=== PATIENT | female | born 1930 | race Caucasian/White ===

== ENCOUNTER 2018-06-01 16:25 | Emergency (ER) | payer MEDICARE, BC ==
[2018-06-01 20:12] LABS: ABS Basophils 0.1 10^3/ul (0-0.2); ABS Eosinophils 0.1 10^3/ul (0-0.6); ABS Monocytes 0.6 10^3/ul (0-0.8); ABS Neutrophils 4.3 10^3/ul (1.5-7.7); ABS Nucleated RBC 0 10^3/ul; Eosinophil % 1.4 %; Hematocrit 39 % (33-41); Hemoglobin 12.8 g/dL (12.0-16.0); Mean Corpuscular HGB Conc 33 g/dL (31-36); Mean Corpuscular Hemoglobin 30 pg (27-31); Mean Corpuscular Volume 89 fL (80-97); Mean Platelet Volume 7.1 fL (7.4-10.4); Nucleated Red Blood Cells % 0.1; Platelet Count 282 10^3/uL (150-450); Red Blood Count 4.34 10^6 /uL (3.70-4.87); Red Cell Distribution Width 14 % (10.5-15); White Blood Count 6.1 10^3/uL (3.5-10.8)
[2018-06-01 20:31] LABS: Calcium 9.5 mg/dL (8.6-10.3); EGFR Non-African American 72.8 (>60); Potassium 4.1 mmol/L (3.5-5.0)
[2018-06-02] MEDS ORDERED: cloNIDine TAB* 0.1 MG PO ONE (00:25)
[2018-06-02 00:51] LABS: Urine Appearance Clear; Urine Bilirubin Negative (Negative); Urine Blood Negative (Negative); Urine Color Straw; Urine Glucose Negative (Negative); Urine Ketones Negative (Negative); Urine Nitrite Negative (Negative); Urine Protein Negative (Negative); Urine Specific Gravity 1.009 (1.010-1.030); Urine Urobilinogen Negative (Negative)
--- NOTE | 2018-06-02 02:06 | ED ---
Lower Extremity - HPI Summary HPI Summary: Patient complains of bilateral chronic lower extremity swelling with reported increase in pain of left foot starting this morning. Pain originally improved with a change in shoe, and then return. Pain only with weightbearing. No pain at rest or when feet are elevated. Denies trauma, fever, cough, sore throat, CP , SOB, N/V/D, abdominal pain, change in urine, change in BM. Medical history is HTN, A. fib. - History of Current Complaint Chief Complaint: EDGeneral Stated Complaint: RT AND LT LEG SWOLLEN PER SON Time Seen by Provider: 06/01/18 20:45 Hx Obtained From: Patient, Family/Security Dispatcher Mechanism Of Injury: Unknown Severity Currently: None Pain Intensity: 0 Pain Scale Used: 0-10 Numeric Timing: Intermittent Location: Is Discrete @ Character Of Pain: Dull, Aching Associated Signs And Symptoms: Positive: Swelling Aggravating Factor(s): Standing, Weight Bearing Alleviating Factor(s): Rest, Elevation Able to Bear Weight: No - Allergies/Home Medications Allergies/Adverse Reactions: Allergies Allergy/AdvReac Type Severity Reaction Status Date / Time MS Ceftriaxone Allergy Rash Verified 01/16/15 18:48 [From Rocephin] MS Hydrochlorothiazide AdvReac Mild See Comment Verified 01/11/15 14:02 [Hydrochlorothiazide] Home Medications: Home Medications Cholecalciferol (Vitamin D3) [Vitamin D3] 5,000 unit PO DAILY 06/01/18 [History Confirmed 06/01/18] Vitamin B Complex CAP* [B Complex CAP*] 1 cap PO DAILY 06/01/18 [History Confirmed 06/01/18] PMH/Surg Hx/FS Hx/Imm Hx Endocrine/Hematology History: Denies: Hx Diabetes, Hx Thyroid Disease Cardiovascular History: Reports: Hx Hypercholesterolemia, Hx Hypertension Respiratory History: Denies: Hx Asthma, Hx Chronic Obstructive Pulmonary Disease (COPD) GI History: Denies: Hx Ulcer Musculoskeletal History: Reports: Hx Arthritis - POSSIBLE Sensory History: Reports: Hx Cataracts, Hx Contacts or Glasses, Hx Hearing Aid - BILATERAL, Hx Hearing Problem Opthamlomology History: Reports: Hx Cataracts, Hx Contacts or Glasses Neurological History: Denies: Hx Dementia, Hx Developmental Delay, Hx Headaches, Hx Migraine, Hx Nerve Disease, Hx Seizures, Hx Spinal Cord Injury, Hx Transient Ischemic Attacks (TIA), Other Neuro Impairments/Disorders - Cancer History Hx Chemotherapy: No Hx Radiation Therapy: No - Surgical History Surgery Procedure, Year, and Place: Cataract surgery Hx Anesthesia Reactions: No Infectious Disease History: No Infectious Disease History: Reports: Hx Hepatitis - hep A at 8 years Denies: Hx Clostridium Difficile, Hx Human Immunodeficiency Virus (HIV), Hx of Known/Suspected MRSA, Hx Shingles, Hx Tuberculosis, Hx Known/Suspected VRE, Hx Known/Suspected VRSA, History Other Infectious Disease, Traveled Outside the [place] in Last 30 Days - Social History Alcohol Use: None Substance Use Type: Reports: None Smoking Status (MU): Never Smoked Tobacco Review of Systems Constitutional: Negative Eyes: Negative ENT: Negative Cardiovascular: Negative Respiratory: Negative Gastrointestinal: Negative Genitourinary: Negative Musculoskeletal: Negative Skin: Other Neurological: Negative Psychological: Normal All Other Systems Reviewed And Are Negative: Yes Physical Exam - Summary Physical Exam Summary: No evidence of trauma, erythema, ecchymosis, deformity noted to the lateral lower extremities. PMS intact distally in bilateral lower extremities. No increase in swelling of left lower extremity versus right lower extremity. Swelling is nonpitting. Calfs soft nontender bilaterally. Neuro exam normal. No pain with palpation of left foot or with flexion or extension against resistance of left foot or left leg. Patient flexes and extends bilateral feet , ankles, knees, hips without any indication of pain. Abdomen soft nontender. Lung sounds clear to auscultation bilaterally. Triage Information Reviewed: Yes Vital Signs On Initial Exam: Initial Vitals Temp Pulse Resp BP Pulse Ox 98.9 F 83 16 158/87 97 06/01/18 16:47 06/01/18 16:47 06/01/18 16:47 06/01/18 16:47 06/01/18 16:47 Vital Signs Reviewed: Yes Appearance: Positive: Well-Appearing Skin: Positive: Warm Head/Face: Positive: Normal Head/Face Inspection Eyes: Positive: Normal Neck: Positive: Supple Respiratory/Lung Sounds: Positive: Clear to Auscultation Cardiovascular: Positive: Normal Abdomen Description: Positive: Nontender Musculoskeletal: Positive: Normal Neurological: Positive: Normal Psychiatric: Positive: Normal AVPU Assessment: Alert - Raquel Coma Scale Best Eye Response: 4 - Spontaneous Best Motor Response: 6 - Obeys Commands Best Verbal Response: 5 - Oriented Coma Scale Total: 15 Diagnostics - Vital Signs Vital Signs Temp Pulse Resp BP Pulse Ox 06/02/18 01:17 86 151/115 99 06/02/18 01:12 91 97 06/02/18 01:05 167/117 06/02/18 00:22 77 193/108 98 06/02/18 00:17 78 190/100 97 06/02/18 00:00 78 97 06/01/18 23:47 80 199/114 98 06/01/18 23:20 82 196/127 99 06/01/18 23:18 85 197/112 98 06/01/18 23:16 83 203/112 97 06/01/18 18:00 98.8 F 82 16 177/101 97 06/01/18 16:47 98.9 F 83 16 158/87 97 - Laboratory Lab Results: Lab Results 06/01/18 06/01/18 06/01/18 Range/Units 19:57 19:57 19:57 WBC 6.1 (3.5-10.8) 10^3/uL RBC 4.34 (3.70-4.87) 10^6 /uL Hgb 12.8 (12.0-16.0) g/dL Hct 39 (33-41) % MCV 89 (80-97) fL MCH 30 (27-31) pg MCHC 33 (31-36) g/dL RDW 14 (10.5-15) % Plt Count 282 (150-450) 10^3/uL MPV 7.1 L (7.4-10.4) fL Neut % (Auto) 70.6 % Lymph % (Auto) 17.0 % [place] % (Auto) 9.9 % Eos % (Auto) 1.4 % Baso % (Auto) 1.1 % Absolute Neuts (auto) 4.3 (1.5-7.7) 10^3/ul Absolute Lymphs (auto) 1.0 (1.0-4.8) 10^3/ul Absolute Monos (auto) 0.6 (0-0.8) 10^3/ul Absolute Eos (auto) 0.1 (0-0.6) 10^3/ul Absolute Basos (auto) 0.1 (0-0.2) 10^3/ul Absolute Nucleated RBC 0 10^3/ul Nucleated RBC % 0.1 Sodium 139 (135-145) mmol/L Potassium 4.1 (3.5-5.0) mmol/L Chloride 106 (101-111) mmol/L Carbon Dioxide 27 (22-32) mmol/L Anion Gap 6 (2-11) mmol/L BUN 27 H (6-24) mg/dL Creatinine 0.75 (0.51-0.95) mg/dL Est GFR ( Amer) 88.0 (>60) Est GFR (Non-Af Amer) 72.8 (>60) BUN/Creatinine Ratio 36.0 H (8-20) Glucose 136 H (70-100) mg/dL Calcium 9.5 (8.6-10.3) mg/dL B-Natriuretic Peptide 129 H (<=100) pg/mL Urine Color Urine Appearance Urine pH (5-9) Ur Specific [place] (1.010-1.030) Urine Protein (Negative) Urine Ketones (Negative) Urine Blood (Negative) Urine Nitrate (Negative) Urine Bilirubin (Negative) Urine Urobilinogen (Negative) Ur Leukocyte Esterase (Negative) Urine Glucose (Negative) 06/02/18 Range/Units 00:40 WBC (3.5-10.8) 10^3/uL RBC (3.70-4.87) 10^6 /uL Hgb (12.0-16.0) g/dL Hct (33-41) % MCV (80-97) fL MCH (27-31) pg MCHC (31-36) g/dL RDW (10.5-15) % Plt Count (150-450) 10^3/uL MPV (7.4-10.4) fL Neut % (Auto) % Lymph % (Auto) % [place] % (Auto) % Eos % (Auto) % Baso % (Auto) % Absolute Neuts (auto) (1.5-7.7) 10^3/ul Absolute Lymphs (auto) (1.0-4.8) 10^3/ul Absolute Monos (auto) (0-0.8) 10^3/ul Absolute Eos (auto) (0-0.6) 10^3/ul Absolute Basos (auto) (0-0.2) 10^3/ul Absolute Nucleated RBC 10^3/ul Nucleated RBC % Sodium (135-145) mmol/L Potassium (3.5-5.0) mmol/L Chloride (101-111) mmol/L Carbon Dioxide (22-32) mmol/L Anion Gap (2-11) mmol/L BUN (6-24) mg/dL Creatinine (0.51-0.95) mg/dL Est GFR ( Amer) (>60) Est GFR (Non-Af Amer) (>60) BUN/Creatinine Ratio (8-20) Glucose (70-100) mg/dL Calcium (8.6-10.3) mg/dL B-Natriuretic Peptide (<=100) pg/mL Urine Color Straw Urine Appearance Clear Urine pH 7.0 (5-9) Ur Specific [place] 1.009 L (1.010-1.030) Urine Protein Negative (Negative) Urine Ketones Negative (Negative) Urine Blood Negative (Negative) Urine Nitrate Negative (Negative) Urine Bilirubin Negative (Negative) Urine Urobilinogen Negative (Negative) Ur Leukocyte Esterase Negative (Negative) Urine Glucose Negative (Negative) Result Diagrams: 06/01/18 19:57 06/01/18 19:57 Lab Statement: Any lab studies that have been ordered have been reviewed, and results considered in the medical decision making process. Lower Extremity Course/Dx - Course Course Of Treatment: Patient complains of bilateral chronic lower extremity swelling with reported increase in pain of left foot starting this morning. Pain originally improved with a change in shoe, and then return. Pain only with weightbearing. No pain at rest or when feet are elevated. Denies trauma, fever, cough, sore throat, CP, SOB, N/V/D, abdominal pain, change in urine, change in BM. Medical history is HTN, A. fib. Physical exam:No evidence of trauma, erythema, ecchymosis, deformity noted to the lateral lower extremities. PMS intact distally in bilateral lower extremities. No increase in swelling of left lower extremity versus right lower extremity. Swelling is nonpitting. Calfs soft nontender bilaterally. Neuro exam normal. No pain with palpation of left foot or with flexion or extension against resistance of left foot or left leg. Patient flexes and extends bilateral feet, ankles, knees, hips without any indication of pain. Abdomen soft nontender. Lung sounds clear to auscultation bilaterally. Vital signs within normal limits initially. Blood pressure began to elevate. Labs unremarkable. Ultrasound negative for DVT, positive for left lower leg edema. Clonidine 0.1 mg by mouth was given for elevated blood pressure up to 199/114. Blood pressure dropped below 100 SBP, patient was observed and was asymptomatic. Blood pressure return to 98/56. Patient was discharged and advised to follow-up with primary care for further evaluation of incidental finding of Story's cyst in left knee and chronic lower leg edema. Patient and son understand and approval plan. - Diagnoses Provider Diagnoses: Leg edema, left, Bakers cyst Discharge - Sign-Out/Discharge Documenting (check all that apply): Patient Departure Patient Received Moderate/Deep Sedation with Procedure: No - Discharge Plan Condition: Stable Disposition: HOME Patient Education Materials: Bakers Cyst (ED), Leg Edema (ED) Referrals: Susie Gomez MD [Primary Care Provider] - Additional Instructions: Follow-up with primary care for chronic lower leg edema and orthopedics Dr. Gaffney for further evaluation of Story's cyst in left knee.. Return to the ED for any new or worsening symptoms. - Billing Disposition and Condition Condition: STABLE Disposition: Home
[2018-06-02 04:34] VITALS: BP 98/56
== END 2018-06-02 04:32 | disposition home or self-care (01) ==
LOC: ED 16:25
DX: M71.22 Synovial cyst of popliteal space [Baker], left knee (principal); R60.1 Generalized edema; E78.00 Pure hypercholesterolemia, unspecified; I10 Essential (primary) hypertension
CPT/HCPCS: 36415; 80048; 81003; 83880; 85025; 99284; A9270-GY